=== PATIENT | female | born 1945 | race Caucasian/White ===

== ENCOUNTER 2019-05-04 22:24 | Emergency (ER) | payer MEDICARE ==
[2019-05-04 23:11] LABS: Bilirubin Negative (Negative); Blood, Urine Moderate (Negative); Clarity Slightly Cloudy (Clear); Glucose, Urine (Dipstick) 250 mg/dL (Negative); Leukocyte Trace (Negative); Nitrite Negative (Negative); Protein, Urine (Dipstick) 30 mg/dL (Neg-Trace)
[2019-05-04 23:14] LABS: Bacteria/HPF 1+ HPF (None Seen)
[2019-05-04 23:27] LABS: #Basophils 0.1 thou/uL (0.0-0.2); #Eosinphils 0.2 thou/uL (0.0-0.7); #Lymphocytes 1.7 thou/uL (1.20-3.40); #Monocytes 0.5 thou/uL (0.11-0.59); #Neutrophils 4.9 thou/uL (1.40-6.50); %Basophils 0.9 % (0.0-1.0); %Eosinophils 2.1 % (0.0-10.0); Mean Corpuscular Volume 93.5 fL (78.0-98.0); Mean Platelet Volume 7.5 fL (7.4-10.4); Platelet Count 198 thou/uL (130-400); RBC Distribution Width 12.7 % (11.5-14.5); White Blood Cell (WBC) Count 7.3 thou/uL (4.8-10.8)
[2019-05-04 23:40] LABS: Base Excess-Venous 2.8 mmol/L (-2.0 to 3.0); CO2 Tension (PvCO2) 55.4 mmHg (40.0-50.0); Calcium, Ionized 1.19 mmol/L (See Comments:); Chloride 102 mmol/L (98-107); Hemoglobin - Calc 14.7 g/dL (12.0-16.0); Potassium 4.4 mmol/L (3.5-5.1); Sodium 142 mmol/L (138-145); T. Carbon Dioxide 31.7 mmol/L (22.0-28.0); vO2 Saturation-calc 36.6 % (60.0-85.0)
[2019-05-04 23:51] LABS: ALT (SGPT) 13 U/L (8-55); AST (SGOT) 18 U/L (5-34); Albumin 4.1 g/dL (3.4-4.8); Alkaline Phosphatase 86 U/L (40-110); Anion Gap 14 mmol/L (10-20); BUN (Urea Nitrogen) 19 mg/dL (9.8-20.1); Bilirubin, Total 0.4 mg/dL (0.2-1.2); CK (CPK) 83 U/L (29-168); Calc. Creatinine Clearance 0 mL/min (70-130); Calcium 9.6 mg/dL (7.8-10.44); Carbon Dioxide 28 mmol/L (23-31); Chloride 103 mmol/L (98-107); Estimated GFR-MDRD 71; Glucose 115 mg/dL (83-110); Potassium 4.4 mmol/L (3.5-5.1); Protein, Total 7.1 g/dL (6.0-8.3); Sodium 141 mmol/L (136-145)
[2019-05-05] MEDS ORDERED: Acetaminophen 500 MG TAB ONE (00:59)
[2019-05-05] MEDS ORDERED: Sulfameth/Trimethoprim DS 800-160mg TAB ONE (01:00)
--- NOTE | 2019-05-05 07:36 | CT ---
PRELIMINARY REPORT/[facility]/EMERGENCY AFTER HOURS PROCEDURE EXAM: CT BRAIN WO CON HISTORY: S/P FALL, PT IS ON BLOOD THINNERS AND C/O OF NECK PAIN, AMS COMPARISON: None FINDINGS: No intracranial hyperdensity to suggest intraparenchymal, intraventricular, or extra-axial hemorrhage . No focal parenchymal hypodensity to suggest acute ischemia. No hydrocephalus. The calvarium is intact. No scalp swelling. The contents of the orbits are symmetric across the midline. The visualized paranasal sinuses and mastoids are clear. IMPRESSION: No acute intracranial pathology. ELECTRONICALLY SIGNED BY: Maryana Carrero MD May 05, 2019 12:44:50 AM CUSTOMER SUPPORT ANALYST This report is intended for review by the ordering physician only, in accordance of law. If you recei ve this report in error, please call [facility] at [phone]. FINAL REPORT CT Brain WO Con History: Fall. Altered mental status Comparison: None. Findings: No acute hemorrhage or infarct. No midline shift or mass effect. Ventricular size and extra -axial CSF spaces are normal. Impression: Findings and impression are concordant with the preliminary report. Transcribed Date/Time: 05/05/2019 7:50 AM
--- NOTE | 2019-05-05 07:41 | CT ---
CT Cervical Spine WO Con History: Trauma. Fall Comparison: None. Findings: There is motion artifact limiting evaluation the level of C2 although there is cortical maegan p-off of the base of the dens. Multilevel degenerative disc space disease, greatest from C4-C7. Occipital condyles are intact. Impression: The findings and impression are concordant with the preliminary report. Likely artifactua l cortical step-off base of the dens as well as the lateral masses of C1 bilaterally due to motion artifact. If clinically warranted, repeat CT examination or MRI can be performed.
--- NOTE | 2019-05-05 09:19 | RAD ---
PORTABLE CHEST: Date: 05/04/19 HISTORY: Shortness of breath. FINDINGS: Patient is rotated on this exam. Heart size is enlarged with postop sternotomy change. Pulmonary vess els appear engorged. There is increased density within the left base. I am not certain what portion o f this is pleural and/or parenchymal change. It is somewhat difficult to assess on this portable exam . IMPRESSION: 1. Mild cardiomegaly. 2. Left-sided MediPort catheter in place. 3. Mild pulmonary vascular engorgement suggesting element of edema. 4. Increased density in the left lung field. This is difficult to assess due to rotation. I am not c ertain what part of this is pleural or parenchymal changes. PA and lateral chest film would be helpfu l in further assessment. POS: [facility]
== END 2019-05-05 01:10 | disposition home or self-care (01) ==
LOC: NAV ERS 22:24
DX: S16.1XXA Strain of muscle, fascia and tendon at neck level, initial encounter (principal); N39.0 Urinary tract infection, site not specified; F32.9 Major depressive disorder, single episode, unspecified; I25.2 Old myocardial infarction; I10 Essential (primary) hypertension; Z79.82 Long term (current) use of aspirin; Z79.51 Long term (current) use of inhaled steroids; Z87.891 Personal history of nicotine dependence; Z79.899 Other long term (current) drug therapy; W19.XXXA Unspecified fall, initial encounter
CPT/HCPCS: 70450; 71045; 72125; 80053; 81003; 81015; 82330; 82550; 82803; 84484; 85025; 87086